=== PATIENT | male | born 1955 | race Caucasian/White ===

== ENCOUNTER 2021-09-05 07:55 | Day surgery (SDC) | payer MEDICAID, SELFPAY ==
[~2021-09-05] VITALS: Ht 167.6 cm; Wt 108.9 kg
[2021-09-05] MEDS ORDERED: SIMETHICONE 40 MG/0.6 ML ML ONE (08:35)
[2021-09-05] MEDS ORDERED: MEPERIDINE 100 MG INJ. 100 MG/ML VIAL ONE (08:35)
[2021-09-05] MEDS ORDERED: MIDAZOLAM HCL 5 MG/5 ML VIAL ONE (08:36)
[2021-09-05 12:43] VITALS: BP_SYST 108
== END 2021-09-05 11:30 | disposition home or self-care (01) ==
LOC: SDS 07:55 → SMU 07:56 → SDS 11:30
PROVIDERS: ATTEND Internal Medicine Gastroenterology
DX: Z08 Encounter for follow-up examination after completed treatment for malignant neoplasm (principal); D12.2 Benign neoplasm of ascending colon; K64.8 Other hemorrhoids; Z85.038 Personal history of other malignant neoplasm of large intestine; Z20.822 Contact with and (suspected) exposure to COVID-19; Z79.899 Other long term (current) drug therapy
CPT/HCPCS: 36415; 45385; 82962; 87426; 88305; 99152; 99153; G0378; J2175; J2250; U0003

== ENCOUNTER 2022-03-06 06:40 | Day surgery (SDC) | payer MEDICARE, MEDICAID ==
[~2022-03-06] VITALS: Ht 167.6 cm; Wt 63.5 kg
[2022-03-06] MEDS ORDERED: MEPERIDINE 100 MG INJ. 100 MG/ML VIAL ONE (07:57)
[2022-03-06] MEDS: MIDAZOLAM HCL 5 MG/5 ML VIAL ONE ×2 (09:20→09:23)
[2022-03-06] MEDS ORDERED: GLUCAGON,HUMAN RECOMBINANT 1 MG VIAL IV ONE (09:51)
[2022-03-06 15:41] VITALS: BP_SYST 130
== END 2022-03-06 11:12 | disposition home or self-care (01) ==
LOC: SDS 06:40 → SMU 06:43 → SDS 11:12
PROVIDERS: ATTEND Internal Medicine Gastroenterology
DX: Z09 Encounter for follow-up examination after completed treatment for conditions other than malignant neoplasm (principal); D12.2 Benign neoplasm of ascending colon; D12.3 Benign neoplasm of transverse colon; K52.9 Noninfective gastroenteritis and colitis, unspecified; Z85.038 Personal history of other malignant neoplasm of large intestine; E11.9 Type 2 diabetes mellitus without complications; E78.5 Hyperlipidemia, unspecified; F32.9 Major depressive disorder, single episode, unspecified; Z79.899 Other long term (current) drug therapy; Z20.822 Contact with and (suspected) exposure to COVID-19
CPT/HCPCS: 36415; 45385; 82962; 88305; 99153; 99152; U0003; J1610; G0378; J2250; J2175; 45384

== ENCOUNTER 2023-12-30 08:06 | Inpatient (IN) | payer MEDICAID, MEDICARE ==
[~2023-12-30] VITALS: Ht 172.7 cm; Wt 84.4 kg
[2023-12-30 08:28] VITALS: BP_SYST 72; PULSE 66; RESP 16; TEMP 96.5; O2SAT 96
[2023-12-30] MEDS: NS 1000 ML IV.SOLN IV ONE (08:39)
[2023-12-30] MEDS ORDERED: MIDODRINE HCL 5 MG TABLET (PROAMATINE) PO SCH (08:45)
[2023-12-30 08:50] LABS: HEMATOCRIT 34.4 % (36-54); HEMOGLOBIN 11.4 g/dL (14.0-18.0); MEAN CORPUSCULAR HEMOGLOBIN 30 pg (27-31); MEAN CORPUSCULAR HGB CONC 33 % (32-36); MEAN CORPUSCULAR VOLUME 90 fL (79.0-98.0); PLATELET COUNT (AUTO) 271 K/uL (130-430); RED BLOOD CELL COUNT(AUTO) 3.81 MIL/uL (4.2-6.2); RED CELL DISTRIBUTION WIDTH 15.1 % (9.0-15.0)
[2023-12-30 08:52] LABS: WHITE BLOOD COUNT (AUTO) 24.9 K/uL (4.8-10.8)
[2023-12-30 09:02] LABS: INR 1.3 (0.80-1.20); PROTHROMBIN TIME 13.6 SECS (9.5-12.5)
[2023-12-30 09:07] LABS: ALANINE AMINOTRANSFERASE 219 U/L (12-78); ALBUMIN 2.8 g/dL (3.4-4.8); ANION GAP 11 (5-15); ASPARTATE AMINOTRANSFERASE 218 U/L (10-37); BILIRUBIN,DIRECT 0.2 mg/dL (0.0-0.3); CALCIUM 8.4 mg/dL (8.4-11.0); CARBON DIOXIDE 27 mmol/L (23-29); CHLORIDE 100 mmol/L (98-107); CREATININE 1.66 mg/dL (0.55-1.30); GFR AFRICAN AMERICAN 54 mL/min (>90); GFR NON AFRICAN-AMERICAN 44 mL/min (>90); GLUCOSE 85 mg/dL (74-106); POTASSIUM 3.7 mmol/L (3.5-5.1); SODIUM SERUM 138 mmol/L (136-145); TOTAL BILIRUBIN 0.3 mg/dL (0.0-1.0); TOTAL PROTEIN, SERUM 7.1 g/dL (6.4-8.3); UREA NITROGEN, BLOOD 16 mg/dL (8-21)
[2023-12-30] MEDS: MIDODRINE HCL 5 MG TABLET (PROAMATINE) PO ONE (09:08)
[2023-12-30] MEDS ORDERED: RISP4TAB PO (09:34)
[2023-12-30] MEDS ORDERED: TAMS0.4C96 PO (09:34)
[2023-12-30] MEDS ORDERED: RISP-31 PO (09:34)
[2023-12-30] MEDS ORDERED: LANS30CA56 PO (09:34)
[2023-12-30] MEDS ORDERED: AMIO200T68 PO (09:34)
[2023-12-30] MEDS ORDERED: CIPR500T5 PO (09:34)
[2023-12-30] MEDS ORDERED: ESCI20TA38 PO (09:34)
[2023-12-30] MEDS ORDERED: GLIM2TAB PO (09:34)
[2023-12-30] MEDS ORDERED: MIDO10TA PO (09:34)
[2023-12-30] MEDS ORDERED: QUET25TA36 PO (09:34)
[2023-12-30] MEDS ORDERED: TRAZ-251 PO (09:34)
[2023-12-30] MEDS ORDERED: FINA5TAB11 PO (09:34)
[2023-12-30 09:35] LABS: BILIRUBIN,URINE 2+ (NEGATIVE); BLOOD, URINE 3+ (NEGATIVE); CLARITY/URINE CLOUDY (CLEAR); COLOR,URINE RED (YELLOW); GLUCOSE,URINE NEGATIVE (NEGATIVE); KETONES,URINE TRACE (NEGATIVE); LEUKOCYTE ESTERASE ,URINE 3+ (NEGATIVE); NITRITE, URINE POSITIVE (NEGATIVE); PROTEIN URINE 3+ (NEGATIVE)
[2023-12-30] MEDS ORDERED: PIPERACILLIN/TAZOBACTAM 4.5 GM/VIAL (ZOSYN) IV ONE (09:45)
[2023-12-30] MEDS: PIPERACILLIN/TAZO 4.5 GM in NS 100 ML IV ONE (09:50)
[2023-12-30 09:55] LABS: BACTERIA,URINE MODERATE /HPF (None Seen); RBC,URINE >100 /HPF (0-3)
[2023-12-30 10:42] LABS: ATYPICAL LYMPHOCYTES % 0 % (0-0); BAND % (MANUAL) 15 % (0-6); BASOPHILS % (MANUAL) 0 % (0-2); EOSINOPHILS % (MANUAL) 0 % (0-7); LYMPHOCYTES % (MANUAL) 4 % (20-46); MONOCYTES % (MANUAL) 2 % (0-11)
[2023-12-30 10:43] LABS: PLATELET ESTIMATE ADEQUATE (ADEQUATE)
[2023-12-30] MEDS ORDERED: ACETAMINOPHEN 325 MG TABLET PO PRN (11:00)
[2023-12-30] MEDS ORDERED: ONDANSETRON HCL 4 MG/2 ML VIAL IVP PRN (11:00)
[2023-12-30] MEDS ORDERED: HYDROcodone/ACETAMIN 10-325 MG TAB PO PRN (11:00)
[2023-12-30] MEDS ORDERED: ALBUTEROL SULFATE 0.083% 2.5 MG/3 ML VIAL.NEB INH PRN (11:00)
[2023-12-30 11:10] VITALS: PULSE 67; O2SAT 97
[2023-12-30] MEDS: TAMSULOSIN HCL 0.4 MG CAP PO SCH (11:15)
[2023-12-30] MEDS: NOREPINEPHRINE BITARTRATE 4 MG in NS 246 ML IV ONE (11:57)
[2023-12-30] MEDS: NACL 0.9% 1,000 ML IV SCH (12:14)
[2023-12-30] MEDS: NS 500 ML IV ONE (12:15)
[2023-12-30] MEDS: FINASTERIDE 5 MG TABLET (PROSCAR) PO ONE (12:15)
[2023-12-30] MEDS: TAMSULOSIN HCL 0.4 MG CAP PO ONE (12:15)
[2023-12-30] MEDS: AMIODARONE HCL 200 MG TABLET PO ONE ×2 (12:16→12:17)
[2023-12-30] MEDS: MIDODRINE HCL 5 MG TABLET (PROAMATINE) PO SCH (15:40)
[2023-12-30] MEDS ORDERED: PIPERACILLIN/TAZOBACTAM 3.375 GM/VIAL (ZOSYN) IV ONE ×2 (19:25→19:35)
[2023-12-30] MEDS: PIPERACILLIN/TAZO 3.375/DEX-IS 50 ML IV SCH (19:27)
[2023-12-30] MEDS ORDERED: NOREPINEPHRINE 4 MG/4 ML VIAL IV ONE (20:14)
[2023-12-30 20:30] VITALS: BP_SYST 125; PULSE 60; RESP 15; TEMP 98; O2SAT 97
[2023-12-30 21:00] VITALS: BP_SYST 125; BP_SYST 133; PULSE 58; RESP 15; RESP 16; TEMP 98; O2SAT 96
[2023-12-30] MEDS: traZODone HCL 50 MG TABLET (DESYREL) PO SCH (21:52)
[2023-12-30] MEDS: QUEtiapine FUMARATE 25 MG TABLET PO SCH (21:53)
[2023-12-30 22:00] VITALS: BP_SYST 117; PULSE 58; RESP 14; O2SAT 97
[2023-12-30] MEDS: AMIODARONE HCL 200 MG TABLET PO SCH (22:27)
[2023-12-30 23:00] VITALS: BP_SYST 109; PULSE 53; RESP 12; O2SAT 96
[2023-12-31] VITALS (38 sets, daily range): BP systolic 94–152; PULSE 47–61; RESP 10–27; TEMP 97.8–98.3; O2SAT 94–98
[2023-12-31] MEDS: NOREPINEPHRINE BITARTRATE 4 MG in D5W 246 ML IV PRN (04:06)
[2023-12-31 06:12] LABS: BASOPHILS % (AUTO) 0.2 % (0.0-2.0); EOSINOPHILS # (AUTO) 0.1 K/uL (0.0-0.4); EOSINOPHILS % (AUTO) 0.3 % (0.0-4.0); HEMATOCRIT 32.5 % (36-54); HEMOGLOBIN 10.7 g/dL (14.0-18.0); LYMPHOCYTES # (AUTO) 2.4 K/uL (1.0-5.5); LYMPHOCYTES % (AUTO) 10.7 % (20.5-51.5); MEAN CORPUSCULAR HEMOGLOBIN 30 pg (27-31); MEAN CORPUSCULAR HGB CONC 33 % (32-36); MEAN CORPUSCULAR VOLUME 91 fL (79.0-98.0); MONOCYTES # (AUTO) 1.1 K/uL (0.0-1.0); MONOCYTES % (AUTO) 5.1 % (1.7-9.3); NEUTROPHILS # (AUTO) 18.5 K/uL (1.8-7.7); NEUTROPHILS % (AUTO) 83.7 % (40.0-70.0); PLATELET COUNT (AUTO) 243 K/uL (130-430); RED BLOOD CELL COUNT(AUTO) 3.59 MIL/uL (4.2-6.2); RED CELL DISTRIBUTION WIDTH 15.3 % (9.0-15.0); WHITE BLOOD COUNT (AUTO) 22.1 K/uL (4.8-10.8)
[2023-12-31 06:37] LABS: ALBUMIN 2.3 g/dL (3.4-4.8); CALCIUM 7.9 mg/dL (8.4-11.0); CREATININE 0.9 mg/dL (0.55-1.30); POTASSIUM 3.6 mmol/L (3.5-5.1); TOTAL BILIRUBIN 0.4 mg/dL (0.0-1.0); TOTAL PROTEIN, SERUM 6.4 g/dL (6.4-8.3)
[2023-12-31] MEDS: INSULIN REGULAR, HUMAN 100 UNITS/ML, 3 ML VIAL (humuLIN R) SUBCUT PRN (07:18)
[2023-12-31] MEDS: FINASTERIDE 5 MG TABLET (PROSCAR) PO SCH (09:26)
[2023-12-31] MEDS: ACETAMINOPHEN 325 MG TABLET PO PRN (13:29)
[2023-12-31] MEDS: HYDROcodone/ACETAMIN 5-325 MG TAB (NORCO/ VICODIN) PO PRN (19:55)
[2023-12-31] MEDS: MORPHINE 2 MG/ML INJ. SYRINGE IVP PRN (23:03)
[2023-12-31] MEDS: ZOLPIDEM TARTRATE 5 MG TABLET PO PRN (23:41)
[2024-01-01] VITALS (32 sets, daily range): BP systolic 92–132; PULSE 41–54; RESP 9–33; TEMP 97.5–98.5; O2SAT 91–98
[2024-01-01 05:25] LABS: BASOPHILS % (AUTO) 0.3 % (0.0-2.0); EOSINOPHILS # (AUTO) 0.1 K/uL (0.0-0.4); HEMATOCRIT 32.3 % (36-54); HEMOGLOBIN 10.9 g/dL (14.0-18.0); LYMPHOCYTES # (AUTO) 2.7 K/uL (1.0-5.5); MEAN CORPUSCULAR HEMOGLOBIN 31 pg (27-31); MEAN CORPUSCULAR HGB CONC 34 % (32-36); MEAN CORPUSCULAR VOLUME 91 fL (79.0-98.0); MONOCYTES # (AUTO) 0.7 K/uL (0.0-1.0); MONOCYTES % (AUTO) 6.3 % (1.7-9.3); NEUTROPHILS # (AUTO) 7.8 K/uL (1.8-7.7); NEUTROPHILS % (AUTO) 68.4 % (40.0-70.0); PLATELET COUNT (AUTO) 249 K/uL (130-430); RED BLOOD CELL COUNT(AUTO) 3.56 MIL/uL (4.2-6.2); WHITE BLOOD COUNT (AUTO) 11.4 K/uL (4.8-10.8)
[2024-01-01 06:08] LABS: ALBUMIN 2.3 g/dL (3.4-4.8); CALCIUM 7.9 mg/dL (8.4-11.0); CREATININE 0.89 mg/dL (0.55-1.30); TOTAL BILIRUBIN 0.3 mg/dL (0.0-1.0); TOTAL PROTEIN, SERUM 6.2 g/dL (6.4-8.3)
[2024-01-01 08:06] LABS: % FREE PSA 20.3 % (.); FREE PSA 0.67 ng/mL; PROSTATE SPECIFIC AG TOTAL 3.3 ng/mL (0.0-4.0)
[2024-01-02] VITALS (16 sets, daily range): BP systolic 103–125; PULSE 41–69; RESP 9–20; TEMP 97.7–99; O2SAT 93–98
[2024-01-02 04:56] LABS: BASOPHILS % (AUTO) 0.5 % (0.0-2.0); EOSINOPHILS # (AUTO) 0.1 K/uL (0.0-0.4); EOSINOPHILS % (AUTO) 1.6 % (0.0-4.0); HEMATOCRIT 34.8 % (36-54); HEMOGLOBIN 11.6 g/dL (14.0-18.0); LYMPHOCYTES % (AUTO) 35.6 % (20.5-51.5); MEAN CORPUSCULAR HEMOGLOBIN 30 pg (27-31); MEAN CORPUSCULAR HGB CONC 33 % (32-36); MEAN CORPUSCULAR VOLUME 91 fL (79.0-98.0); MONOCYTES # (AUTO) 0.6 K/uL (0.0-1.0); MONOCYTES % (AUTO) 7.2 % (1.7-9.3); NEUTROPHILS # (AUTO) 4.6 K/uL (1.8-7.7); NEUTROPHILS % (AUTO) 55.1 % (40.0-70.0); PLATELET COUNT (AUTO) 295 K/uL (130-430); RED BLOOD CELL COUNT(AUTO) 3.82 MIL/uL (4.2-6.2); RED CELL DISTRIBUTION WIDTH 15.5 % (9.0-15.0); WHITE BLOOD COUNT (AUTO) 8.3 K/uL (4.8-10.8)
[2024-01-02 05:28] LABS: ALBUMIN 2.4 g/dL (3.4-4.8); CALCIUM 8.5 mg/dL (8.4-11.0); CREATININE 0.96 mg/dL (0.55-1.30); POTASSIUM 4.2 mmol/L (3.5-5.1); TOTAL BILIRUBIN 0.3 mg/dL (0.0-1.0); TOTAL PROTEIN, SERUM 6.6 g/dL (6.4-8.3)
[2024-01-02] MEDS ORDERED: AMIO200T68 PO (13:00)
[2024-01-02] MEDS ORDERED: CEPH750C7 PO (13:07)
[2024-01-02] MEDS ORDERED: APIX5TAB4 PO (13:12)
[2024-01-02] MEDS: cefTRIAXone 1 GM in D5W 50 ML IV SCH (13:25)
[2024-01-02] MEDS: APIXABAN 2.5 MG TABLET PO SCH (20:16)
[2024-01-03] MEDS ORDERED: AMIODARONE HCL 200 MG TABLET PO SCH (09:00)
== END 2024-01-02 20:40 | disposition home or self-care (01) | DRG 720 ==
LOC: SED 08:06 → SIC 10:59 → UNDOADMIN 10:59 → SIC 20:40
PROVIDERS: ADMIT Family Medicine; ATTEND Family Medicine
PROC: 02HV33Z Insertion of Infusion Device into Superior Vena Cava, Percutaneous Approach (ICD-10-PCS; principal; 2023-12-30)
DX: A41.9 Sepsis, unspecified organism (principal); R65.21 Severe sepsis with septic shock; E44.0 Moderate protein-calorie malnutrition; E87.20 Acidosis, unspecified; N17.9 Acute kidney failure, unspecified; I48.0 Paroxysmal atrial fibrillation; E11.9 Type 2 diabetes mellitus without complications; N13.6 Pyonephrosis; F20.9 Schizophrenia, unspecified; G40.89 Other seizures; N40.1 Benign prostatic hyperplasia with lower urinary tract symptoms; K80.20 Calculus of gallbladder without cholecystitis without obstruction; Z85.038 Personal history of other malignant neoplasm of large intestine; Z79.899 Other long term (current) drug therapy; Z68.28 Body mass index [BMI] 28.0-28.9, adult
CPT/HCPCS: 36415; 71045; 80048; 80053; 80076; 81000; 81001; 81015; 82948; 83037; 83605; 84153; 84484; 85007; 85025; 85027; 85610; 85730; 87040; 87081; 87086; 87186; 93005; 94070; 94760; 97112-GP; 97116-GP; 97530-GP; 99291; J0696; J1815; J2270; J2543; J7050; J7060